=== PATIENT | male | born 1995 | race Caucasian/White ===

== ENCOUNTER → 2025-03-10 | Outpatient (REF) | payer OTHER | LOC: M SMT 13:20 | PROVIDERS: ATTEND Urology | DX: Z30.2 Encounter for sterilization (principal) ==

== ENCOUNTER → 2025-05-05 | Outpatient (CLI) | payer OTHER | LOC: M WHC 07:11 | PROVIDERS: ATTEND Urology | DX: N99.840 Postprocedural hematoma of a genitourinary system organ or structure following a genitourinary system procedure (principal) ==